=== PATIENT | male | born 2000 | race Hispanic/Latino ===

== ENCOUNTER 2025-04-18 11:29 | Emergency (ER) | payer OTHER ==
[~2025-04-18] VITALS: Ht 182.9 cm; Wt 69.5 kg
[2025-04-18] MEDS ORDERED: PERC10TA26 PO (11:42)
[2025-04-18 12:35] LABS: BASO # 0.0 10^3/uL (0.0-0.2); BASO % 0.3 % (0.0-1.0); EOS # 0.1 10^3/uL (0.0-0.5); EOS % 0.3 % (0.0-3.0); LYMPH # 1.8 10^3/uL (1.5-5.0); LYMPH % 12.1 % (24.0-44.0); MONO # 1.2 10^3/uL (0.0-0.8); MONO % 8.0 % (2.0-8.0); NEUTROPHILS # 11.8 10^3/uL (1.5-8.5); NEUTROPHILS % 79.0 % (36.0-66.0); PLATELET COUNT, AUTOMATED 228 10^3/uL (150-450)
[2025-04-18 13:12] LABS: ALT/SGPT 18 U/L (7.0-40); AST/SGOT 20 U/L (<34); CALCIUM LEVEL 10.1 MG/DL (8.5-10.1); CARBON DIOXIDE LEVEL 29 MMOL/L (20-31); CHLORIDE LEVEL 100 MMOL/L (98-107); CREATININE FOR GFR 0.96 MG/DL (0.70-1.30); GLOMERULAR FILTRATION RATE > 90.0 (>60); POTASSIUM SERUM 4.5 MMOL/L (3.5-5.1); SODIUM LEVEL 138 MMOL/L (136-145)
[2025-04-18] MEDS: KETOROLAC 30 MG/ML 1 ML VIAL IV ONE (13:14)
[2025-04-18] MEDS: NS (Normal Saline) 0.9% 1,000 ML IV ONE (13:14)
[2025-04-18] MEDS: ONDANSETRON 4MG 2ML VIAL IV ONE (13:14)
[2025-04-18] MEDS ORDERED: ISOVUE-370 76% 100 ML VIAL As Ordered ONE (13:58)
[2025-04-18 15:33] VITALS: BP 128/60; TEMP 97.3; O2SAT 99
== END 2025-04-18 15:36 | disposition home or self-care (01) ==
LOC: M ED 11:29
DX: R11.2 Nausea with vomiting, unspecified (principal); F17.200 Nicotine dependence, unspecified, uncomplicated; F17.290 Nicotine dependence, other tobacco product, uncomplicated; F12.10 Cannabis abuse, uncomplicated
CPT/HCPCS: 74177; 80048; 80076; 83690; 85025; 87389; 87486; 87581; 87633; 87798; 96374; 96375; 99284; J1885; J2405; Q9967